=== PATIENT | female | born 2000 | race Two or more races ===

== ENCOUNTER 2022-09-12 14:54 | Outpatient (CLI) | payer OTHER | END 2022-09-12 16:45 | disposition home or self-care (01) | LOC: PRENATAL 14:54 | PROVIDERS: ATTEND Obstetrics & Gynecology Maternal & Fetal Medicine | DX: O35.9XX0 Maternal care for (suspected) fetal abnormality and damage, unspecified, not applicable or unspecified (principal); O35.3XX0 Maternal care for (suspected) damage to fetus from viral disease in mother, not applicable or unspecified; Z3A.19 19 weeks gestation of pregnancy ==

== ENCOUNTER 2022-12-12 10:46 | Outpatient (CLI) | payer OTHER | END 2022-12-12 12:21 | disposition home or self-care (01) | LOC: PRENATAL 10:46 | PROVIDERS: ATTEND Obstetrics & Gynecology Maternal & Fetal Medicine | DX: O26.849 Uterine size-date discrepancy, unspecified trimester (principal); O36.8199 Decreased fetal movements, unspecified trimester, other fetus; O36.5990 Maternal care for other known or suspected poor fetal growth, unspecified trimester, not applicable or unspecified; Z3A.32 32 weeks gestation of pregnancy ==

== ENCOUNTER 2023-01-07 11:46 | Outpatient (CLI) | payer OTHER | END 2023-01-07 13:33 | disposition home or self-care (01) | LOC: PRENATAL 11:46 | PROVIDERS: ATTEND Obstetrics & Gynecology Maternal & Fetal Medicine | DX: O26.849 Uterine size-date discrepancy, unspecified trimester (principal); O36.8199 Decreased fetal movements, unspecified trimester, other fetus; O36.5990 Maternal care for other known or suspected poor fetal growth, unspecified trimester, not applicable or unspecified; Z3A.36 36 weeks gestation of pregnancy ==

== ENCOUNTER 2023-01-14 13:51 | Inpatient (IN) | payer OTHER ==
[~2023-01-14] VITALS: Ht 154.9 cm; Wt 70.3 kg
[2023-01-14 15:46] LABS: HEMATOCRIT 36.4 % (36.0-45.00); HEMOGLOBIN 12.1 g/dL (12.0-15.00); MEAN CELL VOLUME 80.4 fL (80.00-100.00); MEAN CORPUSCULAR HEMOGLOBIN 26.8 pg (27.00-32.0); MEAN CORPUSCULAR HGB CONC 33.3 g/dl (32.0-36.0); PLATELET COUNT 298 K/uL (150-450); RED BLOOD COUNT 4.53 M/uL (4.00-6.00); RED CELL DISTRIBUTION WIDTH 15.3 % (11.5-14.5)
[2023-01-14 16:06] LABS: ALBUMIN 2.8 gm/dL (3.4-5.0); BILIRUBIN TOTAL 0.58 mg/dL (0.3-1.2); CALCIUM 9.3 mg/dL (8.5-10.1); CREATININE SERUM 0.4 mg/dL (0.55-1.02); GFR 197.8; GLOBULINA 3.6 G/DL (2.4-3.5); POTASSIUM 4.54 mEq/L (3.5-5.1); TOTAL PROTEIN 6.4 gm/dL (6.4-8.2)
[2023-01-14] MEDS ORDERED: PRENATAL CAPLE1 EAC1 (20:53)
[2023-01-14] MEDS ORDERED: IRON325 MG PO (20:54)
[2023-01-14 21:04] LABS: INR 0.98; PARTIAL THROMBOPLASTIN TIME 26.8 SECONDS (22.0-34.0); PROTHROMBIN TIME 10.3 SECONDS (9.0-11.5)
[2023-01-16 07:36] LABS: HEMATOCRIT 31.6 % (36.0-45.00); HEMOGLOBIN 10.7 g/dL (12.0-15.00); MEAN CELL VOLUME 80.4 fL (80.00-100.00); MEAN CORPUSCULAR HEMOGLOBIN 27.3 pg (27.00-32.0); MEAN CORPUSCULAR HGB CONC 33.9 g/dl (32.0-36.0); PLATELET COUNT 259 K/uL (150-450); RED BLOOD COUNT 3.92 M/uL (4.00-6.00); RED CELL DISTRIBUTION WIDTH 15.6 % (11.5-14.5)
== END 2023-01-18 14:12 | disposition home or self-care (01) | DRG 807 ==
LOC: LDR 13:51 → OB/GYN 01-15 17:44
PROVIDERS: ADMIT Obstetrics & Gynecology; ATTEND Obstetrics & Gynecology
PROC: 4A1HXCZ Monitoring of Products of Conception, Cardiac Rate, External Approach (ICD-10-PCS; 2023-01-14)
PROC: 10E0XZZ Delivery of Products of Conception, External Approach (ICD-10-PCS; principal; 2023-01-15)
PROC: 0W8NXZZ Division of Female Perineum, External Approach (ICD-10-PCS; 2023-01-15)
DX: O41.03X0 Oligohydramnios, third trimester, not applicable or unspecified (principal); Z37.0 Single live birth; O36.5930 Maternal care for other known or suspected poor fetal growth, third trimester, not applicable or unspecified; Z3A.37 37 weeks gestation of pregnancy; Z20.822 Contact with and (suspected) exposure to COVID-19

== ENCOUNTER 2025-02-09 16:54 | Emergency (ER) | payer OTHER ==
[~2025-02-09] VITALS: Ht 152.4 cm; Wt 74.4 kg
[~2025-02-09 16:54] MED LIST: IRON325 MG PO; PRENATAL CAPLE1 EAC1
[2025-02-09] MEDS ORDERED: TENORMIN25 MG PO (17:18)
[2025-02-09] MEDS ORDERED: METHIMAZOLE PO (17:19)
[2025-02-09] MEDS ORDERED: FAMOTIDINE/PF 20 MG/2 ML VIAL IV ONE (17:45)
[2025-02-09] MEDS ORDERED: ONDANSETRON HCL 2 MG/ML VIAL IV ONE (17:45)
[2025-02-09] MEDS ORDERED: RINGERS SOLUTION,LACTATED 1,000 ML IV ONE (17:45)
[2025-02-09] MEDS ORDERED: ACETAMINOPHEN 500 MG GEL..CAP PO ONE ×3 (17:45→22:05)
[2025-02-09] MEDS ORDERED: ONDANSETRON HCL 2 MG/ML VIAL ONE (17:47)
[2025-02-09] MEDS ORDERED: FAMOTIDINE/PF 20 MG/2 ML VIAL ONE (17:47)
[2025-02-09 18:30] LABS: BASO % 0.1 % (0.1-1.2); EOS # 0.01 (0.04-0.54); EOS % 0.1 % (0.7-7.0); LYMPH # 0.79 (1.18-3.74); LYMPH % 5.2 % (19.3-53.1); MEAN PLATELET VOLUME 10.60 fl (9.4-12.4); MONO # 0.56 (0.24-0.82); MONO % 3.7 % (4.7-12.5); NEUT # 13.61 (1.56-6.13); NEUT % 90.5 % (34.0-71.1); RED CELL DISTRIBUTION WIDTH 12.4 % (11.6-14.4)
[2025-02-09 18:45] LABS: URINE APPEARANCE Clear; URINE BILIRRUBIN Negative (NEGATIVE); URINE BLOOD Moderate; URINE COLOR Yellow; URINE GLUCOSE Negative (NEGATIVE); URINE LEUKOCYTE Small; URINE NITRATE Negative; URINE PROTEIN Trace (NEGATIVE); URINE UROBILINOGEN 0.2 E.U./dl
[2025-02-09 18:49] LABS: URINE BACTERIA 453.5 uL (0.0-1933); URINE EPITHELIAL CELLS 39.5 uL (0.0-38.8); URINE RBC 45.0 uL (0.0-20.8); URINE WBC 78.7 uL (0.0-23.2)
[2025-02-09 19:01] LABS: ALT/SGPT 25.0 U/L (12-78); AST/SGOT 21.0 U/L (15-37); BILIRUBIN TOTAL 2.12 mg/dL (0.3-1.2); BUN CREA RATIO 30.0 (7.0-25.0); CREATININE SERUM 0.44 mg/dL (0.55-1.02); GFR 172.85; GLOBULINA 3.3 G/DL (2.4-3.5); GLUCOSE FASTING 118.0 mg/dL (65-100); OSMOLALITY SERUM 279.0 MOSM/KG (275-295)
[2025-02-09 19:08] LABS: URINE KETONE >=160 (NEGATIVE)
[2025-02-09 19:09] LABS: URINE CAST 0.43 uL (0.0-1.40)
[2025-02-09 19:11] LABS: COVID-19 AG NEGATIVE (NEGATIVE)
[2025-02-09 21:52] LABS: BILIRUBIN TOTAL 1.94 mg/dL (0.3-1.2)
[2025-02-09 21:55] LABS: BILIRUBIN,CONJUGATED 0.33 mg/dL (0.0-0.2)
[2025-02-09] MEDS ORDERED: GUAIFEN/DEXTROMETHORPHAN/PE 10 ML BLIST.PACK PO ONE (22:06)
[2025-02-09] MEDS ORDERED: PEPCID AC20 MG PO (22:51)
[2025-02-09] MEDS ORDERED: INTESTINEX680 M1 PO (22:51)
[2025-02-09] MEDS ORDERED: CIPRO500 MG PO (22:51)
== END 2025-02-09 23:47 | disposition home or self-care (01) ==
LOC: ER 16:55
PROVIDERS: Student in an Organized Health Care Education/Training Program
DX: K52.89 Other specified noninfective gastroenteritis and colitis (principal); Z20.822 Contact with and (suspected) exposure to COVID-19; E03.9 Hypothyroidism, unspecified